=== PATIENT | female | born 2000 | race Hispanic/Latino ===

== ENCOUNTER 2019-04-04 03:47 | Inpatient (IN) ==
[2019-04-04] MEDS ORDERED: BUPIVACAINE HCL/0.9 % NACL/PF 250 ML EP PRN (04:34)
[2019-04-04] MEDS ORDERED: NALOXONE HCL 1 MG/1 ML SYRG IV PRN (04:34)
[2019-04-04] MEDS ORDERED: ONDANSETRON HCL/PF 2 MG/ML VIAL IV PRN (04:34)
[2019-04-04] MEDS ORDERED: fentaNYL CITRATE/PF 50 MCG/ML AMPUL IT SCH (04:45)
[2019-04-04] MEDS ORDERED: ONDANSETRON 4 MG TAB.RAPDIS PO PRN (04:47)
[2019-04-04] MEDS ORDERED: RINGER'S SOLUTION,LACTATED 1,000 ML IV ONE (04:47)
[2019-04-04] MEDS ORDERED: LIDOCAINE HCL 50 ML VIAL ONE (04:53)
--- NOTE | 2019-04-04 05:19 | HP ---
Chief Complaint - Chief Complaint Date of Service: 04/04/19 Time of Service: 04:50 Chief Complaint: labor History of Present Illness: This patient is a 18 year old at 38 weeks EGA by confirmed dates. She presents with complaints of labor since 2:30AM She denies n/v/d/c/SOB/CP/fever/chills/cough/cold/flu-like symptoms/TELLO/RUQ pain/STEVIE/dysuria/frequency/hesitancy PNC with Dr. Johnson Problems include asthma, hypothyroidism and weight problems in Past medical history, family history and social history were reviewed. They are as documented on her record and are unchanged. REVIEW OF SYSTEMS: 11 point review of systems completed. All are negative except pertinent positives which are described in the HPI section. CONSTITUTIONAL: Negative HEENT: Negative CARDIOVASCULAR: Negative RESPIRATORY: Negative GASTROINTESTINAL: As above GENITOURINARY: As above OB: As above PSYCH: Negative NEURO: Negative HEM/LYMPH: Negative MUSCULOSKELETAL: Negative SKIN: Negative PHYSICAL EXAM: GENERAL: Well developed, well nourished female uncomfortable with contractions HEENT: Normocephalic, Atraumatic RESPIRATORY: No respiratory distress HEART: Regular rate and rhythm ABDOMEN: Gravid, soft, non-tender, non-distended PELVIS: Cervix: 7-8cm, anterior, +1 Contractions: strong FHT's: NST reactive EXTREMITIES: No significant edema NEURO: No focal motor or sensory deficits noted PSYCH: Cooperative, appropriate mood LABS: cbc, T&S ordered ASSESSMENT/PLAN: 1. 18 yo at 38 weeks gestation, GBS negative, in active labor 2. Asthma, hypothyroidism and weight issues in , otherwise no complications or concerns 3. Normal management of labor and delivery planned epidural prn, time permitting. Plans reviewed and discussed with the patient who is in agreement. Medical History (Updated 04/01/19 @ 10:48 by Roxana Johnson MD) Allergic rhinitis Onset Date: Unknown Anxiety Onset Date: ~2013 Asthma, intermittent Onset Date: Unknown Chronic lymphocytic thyroiditis Onset Date: ~2008 Cough variant asthma Onset Date: ~2006 Depression Onset Date: Unknown Tonsillar hypertrophy Onset Date: Unknown No significant past surgical history Obesity Onset Date: Unknown Syncope, cardiogenic Onset Date: Unknown Varicella Onset Date: Unknown Family History: Family History (Updated 09/04/18 @ 09:46 by Alisha Finnegan CMA) Diabetes Grandmother Alive and well Father Mother Hypertension Grandmother Asthma Grandmother Social History: (Last Updated 04/01/19 @ 10:50 by Roxana Johnson MD) Social History: adopted: No foster care: No group home: No Marital status: Single lives independently: No household members: significant other, children caregiver/support person: No current occupational status: employed current occupation: [employer] current occupational exposures/hazards: No Service: No Tobacco: Smoking Status: Never smoker Alcohol: alcohol intake: former Substance Use: substance use type: does not use Dietary Habits: caffeine: Yes caffeine comment: 1 cup/ daily Type: coffee Immunizations: IMMUNIZATION HX Immunizations Up to Date Yes History of Influenza Vaccine No Hx Pneumococcal Vaccination No Allergies/Adverse Reactions: Allergies Allergy/AdvReac Type Severity Reaction Status Date / Time amoxicillin [Amoxicillin] Allergy Mild hives Verified 04/04/19 04:39 tussin 12 Allergy Mild Hives Uncoded 03/07/19 11:55 Home Medications: HOME MEDICATIONS NK 03/02/19 [Last Taken Unknown] Assessment/Plan - Assessment/Plan (1) Normal labor Problem: Acute (2) 38 weeks gestation of Problem: Acute (3) Asthma complicating in third trimester Problem: Chronic (4) Obesity affecting in third trimester Problem: Chronic (5) Hypothyroidism affecting in third trimester Problem: Chronic
[2019-04-04] MEDS ORDERED: ACETAMINOPHEN 500 MG TABLET PO PRN (05:22)
[2019-04-04] MEDS ORDERED: HYDROCORTISONE 30 APPL TUBE TP PRN (05:22)
[2019-04-04] MEDS ORDERED: BENZOCAINE/MENTHOL 81 SPRAY CAN TP PRN (05:22)
[2019-04-04] MEDS ORDERED: OXYTOCIN/DEXTROSE 5%-WATER 30 UNITS/500 ML BAG IV ONE (05:22)
[2019-04-04] MEDS ORDERED: oxyCODONE HCL/ACETAMINOPHEN 1 TAB TABLET PO PRN ×2 (05:22)
[2019-04-04] MEDS ORDERED: GLYCERIN/WITCH HAZEL LEAF 40 APPL BOX TP PRN (05:22)
[2019-04-04] MEDS ORDERED: BISACODYL 10 MG SUPP.RECT RC PRN (05:22)
[2019-04-04] MEDS ORDERED: IBUPROFEN 800 MG TABLET PO PRN ×2 (05:22)
[2019-04-04] MEDS ORDERED: SENNOSIDES 8.6 MG TABLET PO PRN (05:22)
[2019-04-04] MEDS ORDERED: ACETAMINOPHEN 325 MG TABLET PO PRN (05:22)
--- NOTE | 2019-04-04 05:28 | OR ---
Operative Report - Dictated Report Narrative: Delivery Note I was called to see this patient when she was 7cm dilated. She delivered soon after I arrived. She had wanted an epidural and the route delivery manager had just arrived, but there was not time for this. Delivered a vigorous female over an intact perineum, Apgars 9,9, weight 6 pounds, 8 ounces, EBL not more than about 200mL. Cord gases and cord blood collected. Normal appearing placenta delivered a few minutes after delivery, intact. Mother and baby re mained in [facility]DRP in stable condition.
[2019-04-04 06:41] LABS: Hematocrit 32.8 % (37.0-47.0); Hemoglobin 10.5 gm/dL (12.5-16.0); Mean Cell Volume 84.3 fl (78-100); Mean Platelet Volume 10.1 fl (8-12.5); Neutrophil # 9.3 K/mm3 (1.3-6.0); Platelet Count 280 K/mm3 (150-450); Red Blood Count 3.89 M/mm3 (4.2-5.4); Red Cell Distribution Width 15.3 % (11.5-14.0); White Blood Count 11.2 K/mm3 (4.0-10.5)
[2019-04-04 06:42] LABS: Cocaine Ur Negative (NEGATIVE); Urine Barbiturate Negative (NEGATIVE); Urine Benzodiazepines Negative (NEGATIVE); Urine Opiates Negative (NEGATIVE); Urine PCP Negative (NEGATIVE); Urine THC Negative (NEGATIVE)
--- NOTE | 2019-04-04 08:06 | PN ---
Progess Note - Interim Date: 04/04/19 Time: 07:54 Narrative: 04/04/19 07:54 RN reported concerns regarding the patient's bleeding. I did a manual uterine exploration with 102 mL of clot removed from the uterus and prior 297 mL were expressed. That's for a total of 399 mL. This brings the total EBL to 599 consistent with a hemorrhage. Continue pitocin
[2019-04-04] MEDS: DOCUSATE SODIUM 100 MG CAPSULE PO SCH ×2 (08:07→20:33)
--- NOTE | 2019-04-04 08:09 | PN ---
Subjective - Date and Time Seen Date: 04/04/19 Time: 08:06 Subjective Narrative: Patient without complaints Objective Objective Narrative: See vital signs - Review of Systems Generalized/Overall Review: Reports: No Symptoms Reported Misc: All systems neg except as marked - Vitals Vitals: Last Vital Signs Temp 36.5 C 04/04/19 07:30 Pulse 68 04/04/19 07:30 Resp 18 04/04/19 07:30 BP 124/73 04/04/19 07:30 Pulse Ox 100 04/04/19 07:30 - Abnormal Lab Findings Abnormal Lab Findings: Abnormal Lab Results 04/04/19 Range/Units 06:40 WBC 11.2 H (4.0-10.5) K/mm3 RBC 3.89 L (4.2-5.4) M/mm3 Hgb 10.5 L (12.5-16.0) gm/dL Hct 32.8 L (37.0-47.0) % RDW 15.3 H (11.5-14.0) % Immature Gran % (Auto) 1.10 H (0.001-0.429) % Immature Gran # (Auto) 0.12 H (0.000-0.0310) K/mm3 Neutrophils % 83.0 H (42-75.0) % Lymphocytes % 10.2 L (20-51) % Neutrophils # 9.3 H (1.3-6.0) K/mm3 Lymphocytes # 1.14 L (1.5-3.5) k/mm3 - Exam Constitutional: Present: Alert, Oriented x3, Cooperative, No distress Respiratory: Present: lungs clear, normal breath sounds Abdomen: Present: soft, nontender, nondistended - fundus is firm Extremity: Present: non-tender, no calf tenderness Skin Exam: Present: normal color, warm/dry, no cyanosis Appearance: Present: appropriate appearance Eye contact: Present: cooperative Thoughts: Present: normal thought pattern Assessment/Plan Plan Narrative: PPD 0 s/p Doing well Continue routine care
[2019-04-04] MEDS ORDERED: ceFAZolin SODIUM/DEXTROSE,ISO 2 GM/50 ML BAG IV ONE (09:34)
--- NOTE | 2019-04-05 10:27 | PN ---
Subjective - Date and Time Seen Date: 04/05/19 Time: 10:23 Subjective Narrative: Patient without complaints Objective Objective Narrative: See vital signs - Review of Systems Generalized/Overall Review: Reports: No Symptoms Reported Misc: All systems neg except as marked - Vitals Vitals: Last Vital Signs Temp 36.1 C 04/05/19 08:30 Pulse 92 04/05/19 08:30 Resp 20 04/05/19 08:30 BP 143/87 H 04/05/19 08:30 Pulse Ox 98 04/05/19 08:30 - Exam Constitutional: Present: Alert, Oriented x3, Cooperative Abdomen: Present: nontender, nondistended, no rebound tenderness - fundus is firm Extremity: Present: non-tender, no calf tenderness Skin Exam: Present: normal color, warm/dry, no cyanosis Appearance: Present: appropriate appearance Eye contact: Present: cooperative Thoughts: Present: normal thought pattern Assessment/Plan Plan Narrative: PPD 1 s/p Doing well Discharge tomorrow
[2019-04-05] MEDS: DOCUSATE SODIUM 100 MG CAPSULE PO SCH (20:50)
[2019-04-06 07:28] VITALS: BP 126/84
--- NOTE | 2019-04-06 09:32 | PN ---
Subjective - Date and Time Seen Date: 04/06/19 Time: 09:31 Subjective Narrative: Patient without complaints Objective Objective Narrative: See vital signs - Review of Systems Generalized/Overall Review: Reports: No Symptoms Reported Misc: All systems neg except as marked - Vitals Vitals: Last Vital Signs Temp 36.3 C 04/06/19 07:27 Pulse 95 04/06/19 07:27 Resp 18 04/06/19 07:27 BP 126/84 04/06/19 07:27 Pulse Ox 98 04/06/19 07:27 - Exam Constitutional: Present: Alert, Oriented x3, Cooperative, No distress Abdomen: Present: soft, nontender, nondistended - fundus is firm /Rectal: Present: Exam deferred Extremity: Present: non-tender, no calf tenderness Skin Exam: Present: normal color, warm/dry, no cyanosis Appearance: Present: appropriate appearance Eye contact: Present: cooperative Thoughts: Present: normal thought pattern Assessment/Plan Plan Narrative: PPD 2 s/p Doing well Discharge home
[2019-04-06] MEDS: DOCUSATE SODIUM 100 MG CAPSULE PO SCH (10:25)
== END 2019-04-06 12:25 | disposition home or self-care (01) | DRG 807 ==
LOC: OBCLINIC 03:47 → EDSTATUS 03:47 → OB 04:18
PROVIDERS: ADMIT Obstetrics & Gynecology; ATTEND Obstetrics & Gynecology
CPT/HCPCS: 36415; 59025; 80307; 85025; 86850